=== PATIENT | male | born 1940 | race Caucasian/White ===

== ENCOUNTER → 2019-08-05 | Outpatient (CLI) | payer OTHER, MEDICARE | LOC: SJCVC 13:40 | DX: I42.9 Cardiomyopathy, unspecified (principal); I50.20 Unspecified systolic (congestive) heart failure; Z79.84 Long term (current) use of oral hypoglycemic drugs; Z79.899 Other long term (current) drug therapy ==

== ENCOUNTER → 2019-08-16 | Outpatient (CLI) | payer OTHER, MEDICARE | LOC: SJCVC 10:49 | DX: I50.21 Acute systolic (congestive) heart failure (principal) ==

== ENCOUNTER → 2019-08-26 | Outpatient (CLI) | payer OTHER, MEDICARE | LOC: SJCVC 11:15 | DX: I42.0 Dilated cardiomyopathy (principal) ==

== ENCOUNTER → 2019-10-17 | Outpatient (CLI) | payer OTHER, MEDICARE | LOC: SJCVCIMAG 12:45 | DX: I08.1 Rheumatic disorders of both mitral and tricuspid valves (principal); I25.5 Ischemic cardiomyopathy; I50.9 Heart failure, unspecified; E78.5 Hyperlipidemia, unspecified ==

== ENCOUNTER 2019-10-25 09:16 | Observation (INO) | payer OTHER, MEDICARE ==
[2019-10-25] VITALS (7 sets, daily range): BP systolic 90–155; BP diastolic 36–65
[~2019-10-25] VITALS: Ht 175.3 cm; Wt 83.5 kg
--- NOTE | ~2019-10-25 | D ---
[facility] [place] [address] DISCHARGE SUMMARY Name: WAQAS BHATTI Room #: 215-P ADM [facility] M.R.#: [id number] Admission: 10/25/19 Attend Phys: Keyur Foy Discharge: Date of : 44 Report #: [id number] THIS REPORT FOR: cc: CRAIG. ALKA MARTINEZ CRAIG. DO Lammoglia,Keyur Guillaume MD ~ THIS REPORT FOR: //name// CC: CRAIG. MICHELLE Foy DATE OF SERVICE: 10/26/2019 ADMITTING DIAGNOSES: 1. Dilated cardiomyopathy. 2. Heart failure with reduced ejection fraction with persistent left ventricular ejection fraction under 35% on guideline-directed medical therapy. 3. Diabetes. PROCEDURES PERFORMED: 1. Insertion of a single lead Medtronic ICD. 2. Supervision of conscious sedation. FOLLOWUP: Dr. Foy for wound check in 7-10 days. Follow up in 4 weeks. DISCHARGE DIET: Home diet. DISCHARGE MEDICATIONS: Home medicines. BRIEF CLINICAL HISTORY: See history and physical in chart. HOSPITAL COURSE: The patient was admitted to the hospital and underwent uncomplicated single lead placement ICD. Post-procedure, he remained electrically and hemodynamically stable, was allowed to ambulate without issues. Chest x-ray was identified as being normal without any signs of pneumothorax and leads remained in place. Morning pacer check by [employer] sales representative publications was satisfactory without any significant changes in thresholds. In view of this, the patient is now being discharged in a stable and improved condition to follow up with the previously stated discharge instructions and medications. By: [id number] Keyur Foy MD /nt
[2019-10-25 09:46] LABS: ABSOLUTE NEUTROPHILS 5.5 thou/uL (1.4-8.2); BASOPHILS 0.7 % (0.0-2.0); HEMOGLOBIN 12.9 gm/dL (14.0-18.0); LYMPHOCYTES 24.6 % (24.0-44.0); MCHC 33.9 g/dL (28.0-37.0); MCV 91.4 fL (80.0-100.0); PLATELET COUNT 179 thou/uL (150-400); POLYS 61.7 % (36.0-66.0); RBC 4.16 mil/uL (4.50-6.00); RDW 12.8 % (10.5-14.5); WBC 8.9 thou/uL (4.0-11.0)
[2019-10-25 09:57] LABS: CALCIUM 9.2 mg/dL (8.5-10.1); CREATININE 2.3 mg/dL (0.7-1.3); POTASSIUM 4.6 mmol/L (3.5-5.1)
[2019-10-25] MEDS ORDERED: ZYRTEC10 M5 PO (11:51)
[2019-10-25] MEDS ORDERED: CARVEDILOL25 MG PO (11:51)
[2019-10-25] MEDS ORDERED: LASIX 40 MG TAB40 MG PO ×2 (11:52→14:13)
[2019-10-25] MEDS ORDERED: OSTERA TABLET1 EAC1 PO (11:52)
[2019-10-25] MEDS ORDERED: LISINOPRIL-HCT1 EAC2 PO (11:53)
[2019-10-25] MEDS ORDERED: GLUCOSAMINE &1 EAC1 PO (11:53)
[2019-10-25] MEDS ORDERED: METFORMIN HCL500 M3 PO (11:54)
[2019-10-25] MEDS ORDERED: CHOLECALCIFEROL1 GM PO (12:40)
[2019-10-25] MEDS ORDERED: NITROSTAT0.4 M1 SUBLING (12:41)
[2019-10-25] MEDS ORDERED: CRESTOR10 MG PO (12:42)
[2019-10-25] MEDS ORDERED: MIRALAX119 GM PO (12:42)
[2019-10-25] MEDS ORDERED: SPIRONOLACTONE25 M1 PO (12:43)
[2019-10-25] MEDS ORDERED: THERA-M1 EAC1 PO (12:43)
--- NOTE | 2019-10-25 17:03 | NUR ---
PT ADMITED FROM STUDY ASSISTANT. ADMISSION HX AND ASSESSMENT COMPLETED. HAD LOW HR LOW BP. DR MONDRAGON AWARE. LEFT CHEST DIFIBRILLATOR INCISION INTACT WITH GAUZE AND TEGADERM DRESSING. SMALL PINK DRAINAGE NOTED. PT DENIED HAVING PAIN OR DISCOMFORT. WILL CONTINUE TO MONITOR.
[2019-10-26 00:30] VITALS: BP 104/59
[2019-10-26 04:45] VITALS: BP 110/59
[2019-10-26 07:40] VITALS: BP 113/49
--- NOTE | 2019-10-26 07:58 | NUR ---
Pt. slept intermittently during the night. Verbalized some mild discomfort on left chest site he described as little twitching but denies need for pain med. SB-SR then occasional V paced beats. Making progress towards care plan goals.
--- NOTE | 2019-10-26 10:14 | CATHLAB ---
[facility] [address] [place] [address] INVASIVE PROCEDURE REPORT Name: WAQAS BHATTI Room #: 215-P [facility] S[facility]umar MVi#: [id number] Admission: 10/25/19 Attend Phys: Keyur Foy Discharge: Date of : 44 Report #: [id number] THIS REPORT FOR: cc: CRAIG. ALKA MARTINEZ CRAIG. DO Lammoglia, Francisco J. MD ~ APPROVED REPORT Study performed: 10/25/2019 06:26:50 Patient Status: Out-Patient Room #: Event Personnel: MD Zeny Seo, CVT [place] Doll, ARRT, RD Exam: AICD Implant 1 Lead Indications: dilated cardiomyopathy with ejection fraction of 35% on optimize guidelines directed medical therapy The patient is a 79 year-old male with a history of dilated cardiomyopathy and heart failure with reduced ejection fraction. Patient Info Last EF%: 35 Date: Conscious Sedation Start time: 11:47 End Time: 12:55 Versed 3.0 mg Demeral-25mg IV Implanted Devices: Medtronic; Type of Device: ICD-S; Model #:PRIMO VR [id number]; SERIAL #:[id number]; Generator expiration date: 02/23/2021 Medtronic; Lead #1: RV; Model #: 6947-62; Serial #: [id number]; Expiration date: 05/25/2021 Procedure The patient underwent informed consent. We discussed the details of the procedure including the risks, which include, but not limited to bleeding, infection, vascular damage, cardiac perforation, and pneumothorax. He understood these risks and was willing to proceed. As such, he was brought to the EP/Cardiac Catheterization laboratory in a fasting and sedated state and prepped and draped in a The patient underwent conscious sedation, with no related complications. [facility] [address] [place] [address] INVASIVE PROCEDURE REPORT Name: WAQAS BHATTI Room #: 215-P [facility].#: [id number] Admission: 10/25/19 Attend Phys: Keyur Marc Discharge: Date of : 44 Report #: [id number] The patient was brought to the EP/Cardiac Catheterization laboratory and the left chest and shoulder were prepped and draped in a sterile manner. During this case, Fluoroscopy and no contrast were used for imaging. The left subclavian region was infiltrated with 2% Lidocaine subcutaneous anesthesia. A transverse incision was made in the left upper chest cavity. The subcutaneous pocket was formed via blunt dissection. Percutaneous venous access was achieved and an introducer sheath was inserted into the left Subclavian vein. Sheaths were positions using the modified Seldinger technique Through the introducer sheaths the atrial and ventricular lead wires were positioned in the right atrial appendage and right ventricular apex respectively. Capturing and sensing thresholds were verified. Electrode Parameters R Wave: 8.5 Ventricular Threshold: 0.6 @ 0.50 Ventricular Resistance: 738 The lead and pulse generator were placed into the subcutaneous pocket. Sharp and sponge counts were confirmed to be correct. At this time the pocket was closed subcutaneously with a 2.0 Vicryl running locking stitch and the skin was closed with a 3.0 Vicryl running subcuticular stitch. The operative site was dressed in sterile fashion with steri strips and the patient was transferred to the floor in stable condition. Complications The patient tolerated the procedure well and there were no complications associated with the procedure. Conclusion 1. Successful insertion of a [employer] chronic cd utilizing a single ventricular dual coil fibrillator lead Recommendations 1. Routine post ICD insertion protocol <ELECTRONICALLY SIGNED> By: Keyur Foy MD 10/26/19 1012 [id number] Keyur Foy MD /INF
[2019-10-26 12:06] VITALS: BP 113/49
--- NOTE | 2019-10-26 13:44 | NUR ---
ASSUMED CARE PT SHIFT CHANGE. ASSESSMENT CHARTED.MEDS GIVEN PER AUG. PT ALERT AND ORIENTED.VSS. DENIES PAIN. O2 SATS WNL ON ROOM AIR. PT UP AD RON TOLERATING WELL. IMMOBILIZER IN PLACE. LEFT CHEST DRESSING DRY INTACT WITH DRIED DRAINAGE NOTED. DC ORDERS ACKNOWLEDGED AND IMPLEMENTED. DC PAPERWORK DISCUSSED WITH PT, COMMUNICATES UNDERSTANDING. IV REMOVED.TELE REMOVED. PT LEFT UNIT WITH ALL BELONGINGS AT APPROX 1330.
== END 2019-10-26 13:30 | disposition home or self-care (01) ==
LOC: CATH 09:16 → 2N 12:48
PROVIDERS: ADMIT Internal Medicine
DX: I42.0 Dilated cardiomyopathy (principal); E11.9 Type 2 diabetes mellitus without complications; I50.9 Heart failure, unspecified; Z95.0 Presence of cardiac pacemaker

== ENCOUNTER → 2019-12-20 | Outpatient (CLI) | payer OTHER, MEDICARE ==
[~2019-12-20] MED LIST: CARVEDILOL25 MG PO; CHOLECALCIFEROL1 GM PO; CRESTOR10 MG PO; GLUCOSAMINE &1 EAC1 PO; LASIX 40 MG TAB40 MG PO; LISINOPRIL-HCT1 EAC2 PO; METFORMIN HCL500 M3 PO; MIRALAX119 GM PO; NITROSTAT0.4 M1 SUBLING; OSTERA TABLET1 EAC1 PO; SPIRONOLACTONE25 M1 PO; THERA-M1 EAC1 PO; ZYRTEC10 M5 PO
== END ==
LOC: SJCVC 14:03
PROVIDERS: ATTEND Internal Medicine
DX: I42.0 Dilated cardiomyopathy (principal); I50.9 Heart failure, unspecified; E78.5 Hyperlipidemia, unspecified; E87.5 Hyperkalemia; Z79.899 Other long term (current) drug therapy

== ENCOUNTER → 2020-06-26 | Outpatient (CLI) | payer OTHER, MEDICARE | LOC: SJCVCIMAG 09:30 | PROVIDERS: ATTEND Internal Medicine | DX: I08.1 Rheumatic disorders of both mitral and tricuspid valves (principal); R94.31 Abnormal electrocardiogram [ECG] [EKG]; I49.3 Ventricular premature depolarization; I13.0 Hypertensive heart and chronic kidney disease with heart failure and stage 1 through stage 4 chronic kidney disease, or unspecified chronic kidney disease; I50.9 Heart failure, unspecified; N18.9 Chronic kidney disease, unspecified; I42.0 Dilated cardiomyopathy; E78.5 Hyperlipidemia, unspecified; Z79.82 Long term (current) use of aspirin; Z79.899 Other long term (current) drug therapy ==

== ENCOUNTER → 2021-06-24 | Outpatient (CLI) | payer OTHER, MEDICARE | LOC: SJCVCIMAG 07:50 | PROVIDERS: ATTEND Internal Medicine | DX: I13.0 Hypertensive heart and chronic kidney disease with heart failure and stage 1 through stage 4 chronic kidney disease, or unspecified chronic kidney disease (principal); I50.20 Unspecified systolic (congestive) heart failure; E11.22 Type 2 diabetes mellitus with diabetic chronic kidney disease; N18.9 Chronic kidney disease, unspecified; E78.5 Hyperlipidemia, unspecified; I42.0 Dilated cardiomyopathy; Z79.82 Long term (current) use of aspirin; Z79.899 Other long term (current) drug therapy; Z72.89 Other problems related to lifestyle ==